=== PATIENT | female | born 1965 | race Caucasian/White ===

== ENCOUNTER 2017-12-20 01:01 | Day surgery (SDC) | payer BC ==
[~2017-12-20 01:01] MED LIST: ALBU90OI6 INH; AMOX500 PO; Amoxicillin500 MG PO; CALCIUM CITRAT PO; CHROMIUM PICOLINATE PO; CITRICAL PO; CLEOCIN; CLINDAMYCI600 MG/50 IV; CODLIVC PO; COPPER PO; CYCL10 PO; D-RIBOSE1 GM MC; DHEA; DICL75ER TOP; DIPATR PO; EPIN.3I IM; FLUC100 PO; FLUC200 PO; GABA800 PO; Gas-X80 MG PO; HEPARIN 50500 UNIT/5 IV; HYDACE5 PO; HYDACE5325; HYDROCODONE; HYDROCORTISONE TP; HYOS.125 SL; IBUP800 PO; LIDO5TP TOP; MAG GLYCINATE100 MG PO; MAGAMI; METHYL B12 PO; METO50ER PO; MINO100 PO; MTHF PO; MULTI MINERAL PO; N-ACETYL-L-CYS600 MG PO; NAPR500 PO; NAPR500ERA; NORT50 PO; NORT75 PO; OMEP20ER PO; ONDA4 PO; PARO20 PO; PRED20 PO; PROB500 PO; PROG100; PROM25 PO; Pregnenolone Po25 GM PO; Questran4 GM PO; R LIPOIC ACID PO; RIFA300 PO; SACC250C PO; SUMA25 PO; TIZANIDINE HCL4 MG PO; VANCOMYCIN1.5 GM/250 IV; Vitamin C100 M1 PO; Vitamin D2000 UNIT PO; [UNRECOGNIZED DRUG - CODE] IM; [UNRECOGNIZED DRUG - CODE] PO; [UNRECOGNIZED DRUG - OTHER]; [UNRECOGNIZED DRUG - OTHER] PO; [UNRECOGNIZED DRUG - OTHER] PO; [UNRECOGNIZED DRUG - OTHER] PO; [UNRECOGNIZED DRUG - OTHER] PO; [UNRECOGNIZED DRUG - OTHER] PO; [UNRECOGNIZED DRUG - OTHER] PO; [UNRECOGNIZED DRUG - OTHER] PO; [UNRECOGNIZED DRUG - OTHER] PO; [UNRECOGNIZED DRUG - OTHER] PO; [UNRECOGNIZED DRUG - OTHER] PO; [UNRECOGNIZED DRUG - OTHER] TOP
[2017-12-20] MEDS ORDERED: Naltrexone HCl50 MG (13:44)
== END 2017-12-20 14:22 | disposition home or self-care (01) ==
LOC: ATC 01:01
DX: Z45.2 Encounter for adjustment and management of vascular access device (principal); A69.20 Lyme disease, unspecified; Z79.899 Other long term (current) drug therapy; E78.5 Hyperlipidemia, unspecified
CPT/HCPCS: 36593; 96523; J1642

== ENCOUNTER 2018-01-22 00:27 | Day surgery (SDC) | payer BC ==
[~2018-01-22 00:27] MED LIST changes: +Naltrexone HCl50 MG
== END 2018-01-22 14:50 | disposition home or self-care (01) ==
LOC: ATC 00:27
DX: Z45.2 Encounter for adjustment and management of vascular access device (principal); A69.20 Lyme disease, unspecified
CPT/HCPCS: 96523; J1642

== ENCOUNTER 2018-02-20 08:28 | Day surgery (SDC) | payer BC ==
[~2018-02-20] VITALS: Ht 167.6 cm; Wt 81.8 kg
[2018-02-20] MEDS ORDERED: AMOX250 PO (09:08)
[2018-02-20] MEDS ORDERED: RIFA300 PO (09:09)
== END 2018-02-20 13:15 | disposition home or self-care (01) ==
LOC: ORSCSDS 08:28
PROVIDERS: Student in an Organized Health Care Education/Training Program
PROC: 0QSP04Z Reposition Left Metatarsal with Internal Fixation Device, Open Approach (ICD-10-PCS; principal; 2018-02-20 09:30)
PROC: 0QSR04Z Reposition Left Toe Phalanx with Internal Fixation Device, Open Approach (ICD-10-PCS; principal; 2018-02-20 09:30)
DX: M20.12 Hallux valgus (acquired), left foot (principal); M79.672 Pain in left foot; I10 Essential (primary) hypertension; J45.909 Unspecified asthma, uncomplicated; A69.20 Lyme disease, unspecified; Z79.899 Other long term (current) drug therapy
CPT/HCPCS: C1713; J2250; J3010

== ENCOUNTER 2018-02-21 13:11 | Emergency (ER) | payer BC ==
[~2018-02-21] VITALS: Ht 167.6 cm; Wt 79.8 kg
[~2018-02-21 13:11] MED LIST changes: +AMOX250 PO
[2018-02-21 13:54] LABS: Hematocrit 43.1 % (33.0-51.0); Hemoglobin 14.3 g/dL (11.5-16.0); Mean Corpuscular HGB 30.6 pg (26.0-34.0); Mean Corpuscular HGB Conc 33.2 g/dL (31.5-36.5); Mean Corpuscular Volume 92 fL (80-100); Mean Platelet Volume 10.1 fL (9.1-12.4); Platelet Count 169 K/mm3 (150-400); RDW Coefficient Variation 13.3 % (11.7-14.2); RDW Standard Deviation 45.1 fL (35.1-46.3); Red Blood Cell Count 4.67 M/mm3 (3.80-5.20); White Blood Cell Count 5.97 K/mm3 (4.00-11.30)
[2018-02-21 14:17] LABS: Alanine Aminotransfer (ALT/SGP 31 U/L (12-78); Albumin, Blood 3.4 g/dL (3.4-5.0); Albumin/Globulin Ratio 0.9 (0.8-1.8); Alk Phos 47 U/L (50-136); Anion Gap 6 mmol/L (6-16); Aspartate Aminotrans (AST/SGOT 25 U/L (12-37); Bilirubin, Total 0.4 mg/dL (0.1-1.0); Blood Urea Nitrogen 14 mg/dL (8-24); Bun/Creatinine Ratio 19.9 (12.0-20.0); CO2, Blood 27 mmol/L (21-32); Calcium, Blood 8.4 mg/dL (8.5-10.1); Chloride, Blood 104 mmol/L (98-108); Globulin, Blood 3.9 g/dL (2.2-4.0); Glomerular Filtration Rate >60 (60-); Glucose, Blood 95 mg/dL (70-99); Potassium, Blood 3.9 mmol/L (3.5-5.5); Sodium, Blood 137 mmol/L (136-145); Total Protein, Blood 7.3 g/dL (6.4-8.2); Troponin I <0.015 ng/mL (0.000-0.040)
[2018-02-21 14:18] LABS: BAND PERCENT MAN 9 % (0-8); BASOPHILS PERCENT MAN 0 % (0-2); EOSINOPHILS PERCENT MAN 0 % (0-6); LYMPHOCYTES ABSOLUTE MAN 0.29 K/mm3 (0.84-5.20); LYMPHOCYTES PERCENT MAN 5 % (21-46); MONOCYTES ABSOLUTE MAN 0.17 K/mm3 (0.16-1.47); MONOCYTES PERCENT MAN 3 % (4-13); NEUTROPHILS ABSOLUTE MAN 5.49 K/mm3 (1.96-9.15); SEG NEUTROPHILS PERCENT MAN 83 % (41-73); TOTAL CELLS COUNTED 100
[2018-02-21 16:16] LABS: Source, Urine Clean Catch
[2018-02-21 16:30] LABS: Appearance, Urine Clear (Clear); Bilirubin, Urine Neg (Neg); Blood, Urine 1+ (Neg); Color, Urine Yellow (P-Yellow); Glucose Qualitative, Urine Neg (Neg); Ketones, Urine Neg (Neg); Leukocyte Esterase, Urine Neg (Neg); Nitrite, Urine Neg (Neg); Protein, Urine Neg (Neg); Specific Gravity, Urine 1.005 (1.003-1.022); Urobilinogen, Urine NORM (Normal)
[2018-02-21 16:50] LABS: Bacteria Not Seen /hpf; Red Blood Cells, Urine 0-2 /hpf (0-2); Squamous Epithelial Cells Few /hpf (Few); White Blood Cells, Urine 0-2 /hpf (0-5)
== END 2018-02-21 17:45 | disposition home or self-care (01) ==
LOC: ER 13:11
PROVIDERS: Emergency Medicine
DX: R55 Syncope and collapse (principal); Z98.890 Other specified postprocedural states; Z88.5 Allergy status to narcotic agent; Z91.013 Allergy to seafood; Z79.51 Long term (current) use of inhaled steroids; Z79.899 Other long term (current) drug therapy
CPT/HCPCS: 36415; 80053; 81001; 83880; 84484; 85025; 93005; 93010; 96374; 96375; 96376; 99284; J2405; J3010; J7120

== ENCOUNTER 2019-01-17 00:58 | Emergency (ER) | payer BC ==
[~2019-01-17] VITALS: Ht 167.6 cm; Wt 72.6 kg
== END 2019-01-17 02:05 | disposition home or self-care (01) ==
LOC: ER 00:58
DX: S01.81XA Laceration without foreign body of other part of head, initial encounter (principal); Z88.5 Allergy status to narcotic agent; Z91.013 Allergy to seafood; Z88.6 Allergy status to analgesic agent; Z88.8 Allergy status to other drugs, medicaments and biological substances; Z79.899 Other long term (current) drug therapy; W19.XXXA Unspecified fall, initial encounter

== ENCOUNTER 2019-03-17 08:52 | Day surgery (SDC) | payer OTHER, BC | END 2019-03-17 22:38 | disposition home or self-care (01) | LOC: RAD 08:52 → MRI 10:00 → RAD 22:38 | DX: S43.492A Other sprain of left shoulder joint, initial encounter (principal); M75.52 Bursitis of left shoulder | CPT/HCPCS: 20610; 73222; 77002; A9577; Q9967 ==

== ENCOUNTER 2019-05-01 15:24 | Emergency (ER) | payer BC ==
[~2019-05-01] VITALS: Ht 167.6 cm; Wt 73.0 kg
[2019-05-01] MEDS ORDERED: KETO10 PO (18:15)
== END 2019-05-01 18:47 | disposition home or self-care (01) ==
LOC: ER 15:24
DX: S83.207A Unspecified tear of unspecified meniscus, current injury, left knee, initial encounter (principal); X50.9XXA Other and unspecified overexertion or strenuous movements or postures, initial encounter; Z88.8 Allergy status to other drugs, medicaments and biological substances; Z88.5 Allergy status to narcotic agent; Z91.013 Allergy to seafood; Z79.899 Other long term (current) drug therapy
CPT/HCPCS: 29505; 73562-LT; 99283-25

== ENCOUNTER → 2019-11-05 | Outpatient (CLI) | payer BC ==
[~2019-11-05] MED LIST changes: +KETO10 PO
== END | disposition home or self-care (01) ==
LOC: LAB SHORT 09:59 → LAB 09:59
PROVIDERS: Hospitalist
DX: Z12.4 Encounter for screening for malignant neoplasm of cervix (principal)
CPT/HCPCS: G0145

== ENCOUNTER → 2019-12-10 | Outpatient (CLI) | payer BC | END | disposition home or self-care (01) | LOC: LAB SHORT 13:46 → PLD 13:46 | DX: D22.72 Melanocytic nevi of left lower limb, including hip (principal) | CPT/HCPCS: 88305 ==

== ENCOUNTER → 2020-11-08 | Outpatient (CLI) | payer BC ==
[~2020-11-08] MED LIST changes: +MINO50
[2020-11-08 15:05] LABS: BASOPHILS ABSOLUTE AUTO 0.06 K/mm3 (0.00-0.23); BASOPHILS PERCENT AUTO 1 % (0-2); EOSINOPHILS ABSOLUTE AUTO 0.19 K/mm3 (0.00-0.68); EOSINOPHILS PERCENT AUTO 3 % (0-6); Hematocrit 45.1 % (33.0-51.0); Hemoglobin 14.4 g/dL (11.5-16.0); IMMATURE GRAN ABSOLUTE AUTO 0.01 K/mm3 (0.00-0.10); IMMATURE GRAN PERCENT AUTO 0 % (0-1); LYMPHOCYTES ABSOLUTE AUTO 0.92 K/mm3 (0.84-5.20); LYMPHOCYTES PERCENT AUTO 16 % (21-46); MONOCYTES ABSOLUTE AUTO 0.41 K/mm3 (0.16-1.47); MONOCYTES PERCENT AUTO 7 % (4-13); Mean Corpuscular HGB 30.4 pg (26.0-34.0); Mean Corpuscular HGB Conc 31.9 g/dL (31.5-36.5); Mean Corpuscular Volume 95 fL (80-100); Mean Platelet Volume 10.9 fL (9.1-12.4); NEUTROPHILS ABSOLUTE AUTO 4.35 K/mm3 (1.96-9.15); NEUTROPHILS PERCENT AUTO 73 % (41-73); Platelet Count 199 K/mm3 (150-400); RDW Coefficient Variation 14.2 % (11.7-14.2); RDW Standard Deviation 49.6 fL (35.1-46.3); Red Blood Cell Count 4.73 M/mm3 (3.80-5.20); White Blood Cell Count 5.94 K/mm3 (4.00-11.30)
[2020-11-08 15:46] LABS: Alanine Aminotransfer (ALT/SGP 26 U/L (12-78); Albumin/Globulin Ratio 1.2 (0.8-1.8); Alk Phos 56 U/L (50-136); Anion Gap 5 mmol/L (6-16); Aspartate Aminotrans (AST/SGOT 18 U/L (12-37); Bilirubin, Total 0.3 mg/dL (0.1-1.0); Blood Urea Nitrogen 21 mg/dL (8-24); Bun/Creatinine Ratio 27.6 (12.0-20.0); CHOL/HDL RATIO 2.3; CO2, Blood 25 mmol/L (21-32); Calcium, Blood 9.2 mg/dL (8.5-10.1); Chloride, Blood 110 mmol/L (98-108); Cholesterol 186 mg/dL (50-200); Creatinine, Blood 0.76 mg/dL (0.40-1.00); Globulin, Blood 3.4 g/dL (2.2-4.0); Glomerular Filtration Rate >60 (60-); Glucose, Blood 80 mg/dL (70-99); HDL Cholesterol 80 mg/dL (>39); LDL/HDL RATIO 1.2; Low Density Lipoprotein Chol 95 mg/dL (0-110); Potassium, Blood 3.7 mmol/L (3.5-5.5); Sodium, Blood 140 mmol/L (136-145); Total Protein, Blood 7.4 g/dL (6.4-8.2); Triglycerides 56 mg/dL (30-160); Very Low Density Lipoprot Chol 11 mg/dL (6-32)
== END | disposition home or self-care (01) ==
LOC: LAB SHORT 09:24 → LAB 09:24
PROVIDERS: Hospitalist
DX: Z00.00 Encounter for general adult medical examination without abnormal findings (principal)
CPT/HCPCS: 80053; 80061; 85025

== ENCOUNTER → 2021-11-13 | Outpatient (CLI) | payer BC ==
[2021-11-13 15:16] LABS: BASOPHILS ABSOLUTE AUTO 0.03 K/mm3 (0.00-0.23); BASOPHILS PERCENT AUTO 1 % (0-2); EOSINOPHILS PERCENT AUTO 5 % (0-6); Hemoglobin 14.3 g/dL (11.5-16.0); IMMATURE GRAN ABSOLUTE AUTO 0.01 K/mm3 (0.00-0.10); IMMATURE GRAN PERCENT AUTO 0 % (0-1); LYMPHOCYTES ABSOLUTE AUTO 0.68 K/mm3 (0.84-5.20); LYMPHOCYTES PERCENT AUTO 17 % (21-46); MONOCYTES ABSOLUTE AUTO 0.44 K/mm3 (0.16-1.47); MONOCYTES PERCENT AUTO 11 % (4-13); Mean Corpuscular HGB 30.3 pg (26.0-34.0); Mean Corpuscular HGB Conc 32.5 g/dL (31.5-36.5); Mean Corpuscular Volume 93 fL (80-100); Mean Platelet Volume 10.8 fL (9.1-12.4); NEUTROPHILS ABSOLUTE AUTO 2.66 K/mm3 (1.96-9.15); NEUTROPHILS PERCENT AUTO 66 % (41-73); Platelet Count 190 K/mm3 (150-400); RDW Coefficient Variation 13.2 % (11.7-14.2); RDW Standard Deviation 45.5 fL (35.1-46.3); Red Blood Cell Count 4.72 M/mm3 (3.80-5.20); White Blood Cell Count 4.02 K/mm3 (4.00-11.30)
[2021-11-13 15:29] LABS: Alanine Aminotransfer (ALT/SGP 46 U/L (12-78); Albumin, Blood 3.7 g/dL (3.4-5.0); Alk Phos 55 U/L (50-136); Anion Gap 4 mmol/L (6-16); Aspartate Aminotrans (AST/SGOT 27 U/L (12-37); Bilirubin, Total 0.5 mg/dL (0.1-1.0); Blood Urea Nitrogen 17 mg/dL (8-24); Bun/Creatinine Ratio 24.4 (12.0-20.0); CO2, Blood 31 mmol/L (21-32); Calcium, Blood 9.1 mg/dL (8.5-10.1); Chloride, Blood 106 mmol/L (98-108); Cholesterol 164 mg/dL (50-200); Globulin, Blood 3.7 g/dL (2.2-4.0); Glomerular Filtration Rate >60 (60-); Glucose, Blood 78 mg/dL (70-99); HDL Cholesterol 80 mg/dL (>39); LDL/HDL RATIO 0.9; Low Density Lipoprotein Chol 70 mg/dL (0-110); Potassium, Blood 3.8 mmol/L (3.5-5.5); Sodium, Blood 141 mmol/L (136-145); Total Protein, Blood 7.4 g/dL (6.4-8.2); Triglycerides 68 mg/dL (30-160); Very Low Density Lipoprot Chol 13 mg/dL (6-32)
== END | disposition home or self-care (01) ==
LOC: LAB SHORT 13:27 → LAB 13:27
PROVIDERS: Hospitalist
DX: Z01.419 Encounter for gynecological examination (general) (routine) without abnormal findings (principal)
CPT/HCPCS: 80053; 80061; 85025

== ENCOUNTER 2022-02-28 09:14 | Day surgery (SDC) | payer BC ==
[~2022-02-28] VITALS: Ht 165.1 cm; Wt 77.1 kg
[~2022-02-28 09:14] MED LIST changes: +CALCIUM CIT 311 EAC7 PO; +CLIMARA1 EACH TOP; +CLIN1TS; +Diclofenac Sodi50 MG; +FISH OIL 1,2001 EAC4 PO; +Naltrexone HCl50 MG PO; +Natrol Alpha 3300 MG PO; +PROG100 PO; +TOPI100 PO; +Vitamin B Comple1 EA PO; +[UNRECOGNIZED DRUG - OTHER]; +[UNRECOGNIZED DRUG - OTHER]
== END 2022-02-28 11:54 | disposition home or self-care (01) ==
LOC: ORSCSDS 09:14
PROVIDERS: Orthopaedic Surgery
PROC: 0JBP0ZZ Excision of Left Lower Leg Subcutaneous Tissue and Fascia, Open Approach (ICD-10-PCS; principal; 2022-02-28 10:30)
DX: D17.24 Benign lipomatous neoplasm of skin and subcutaneous tissue of left leg (principal); I10 Essential (primary) hypertension; I49.9 Cardiac arrhythmia, unspecified; F41.9 Anxiety disorder, unspecified; Z79.899 Other long term (current) drug therapy
CPT/HCPCS: 88304; J0690; J1100; J1885; J2250; J2405; J2704; J3010; J7120

== ENCOUNTER → 2022-11-13 | Outpatient (CLI) | payer BC ==
[2022-11-13 15:30] LABS: Alanine Aminotransfer (ALT/SGP 70 U/L (12-78); Albumin, Blood 3.7 g/dL (3.4-5.0); Albumin/Globulin Ratio 1.3 (0.8-1.8); Alk Phos 50 U/L (50-136); Anion Gap 7 mmol/L (6-16); Aspartate Aminotrans (AST/SGOT 38 U/L (12-37); Bilirubin, Total 0.6 mg/dL (0.1-1.0); Blood Urea Nitrogen 21 mg/dL (8-24); Bun/Creatinine Ratio 31.2 (12.0-20.0); CHOL/HDL RATIO 2.4; CO2, Blood 28 mmol/L (21-32); Calcium, Blood 8.6 mg/dL (8.5-10.1); Chloride, Blood 105 mmol/L (98-108); Cholesterol 187 mg/dL (50-200); Creatinine, Blood 0.67 mg/dL (0.40-1.00); Globulin, Blood 2.8 g/dL (2.2-4.0); Glomerular Filtration Rate 103 (60-); Glucose, Blood 85 mg/dL (70-99); HDL Cholesterol 79 mg/dL (>39); LDL/HDL RATIO 1.1; Low Density Lipoprotein Chol 89 mg/dL (0-110); Potassium, Blood 3.7 mmol/L (3.5-5.5); Sodium, Blood 140 mmol/L (136-145); Total Protein, Blood 6.5 g/dL (6.4-8.2); Triglycerides 95 mg/dL (30-160); Very Low Density Lipoprot Chol 19 mg/dL (6-32)
[2022-11-13 15:48] LABS: BASOPHILS ABSOLUTE AUTO 0.04 K/mm3 (0.00-0.23); BASOPHILS PERCENT AUTO 1 % (0-2); EOSINOPHILS ABSOLUTE AUTO 0.19 K/mm3 (0.00-0.68); EOSINOPHILS PERCENT AUTO 4 % (0-6); Hematocrit 42.1 % (33.0-51.0); Hemoglobin 13.9 g/dL (11.5-16.0); IMMATURE GRAN ABSOLUTE AUTO 0.01 K/mm3 (0.00-0.10); IMMATURE GRAN PERCENT AUTO 0 % (0-1); LYMPHOCYTES ABSOLUTE AUTO 0.68 K/mm3 (0.84-5.20); LYMPHOCYTES PERCENT AUTO 14 % (21-46); MONOCYTES ABSOLUTE AUTO 0.48 K/mm3 (0.16-1.47); MONOCYTES PERCENT AUTO 10 % (4-13); Mean Corpuscular HGB 31.5 pg (26.0-34.0); Mean Corpuscular Volume 96 fL (80-100); Mean Platelet Volume 11.2 fL (9.1-12.4); NEUTROPHILS ABSOLUTE AUTO 3.63 K/mm3 (1.96-9.15); NEUTROPHILS PERCENT AUTO 72 % (41-73); Platelet Count 185 K/mm3 (150-400); RDW Coefficient Variation 14.1 % (11.7-14.2); RDW Standard Deviation 49.4 fL (35.1-46.3); Red Blood Cell Count 4.41 M/mm3 (3.80-5.20); White Blood Cell Count 5.03 K/mm3 (4.00-11.30)
[2022-11-15 00:07] LABS: CHLAMYDIA TRACHOMATIS, NAA Negative (Negative)
== END ==
LOC: LAB 09:35 → LAB SHORT 09:35
PROVIDERS: Hospitalist
DX: Z00.00 Encounter for general adult medical examination without abnormal findings (principal); Z11.3 Encounter for screening for infections with a predominantly sexual mode of transmission
CPT/HCPCS: 80053; 80061; 85025; 87491; 87591

== ENCOUNTER → 2023-11-14 | Outpatient (CLI) | payer BC ==
[2023-11-14 15:38] LABS: BASOPHILS ABSOLUTE AUTO 0.05 K/mm3 (0.00-0.23); BASOPHILS PERCENT AUTO 1 % (0-2); EOSINOPHILS ABSOLUTE AUTO 0.19 K/mm3 (0.00-0.68); EOSINOPHILS PERCENT AUTO 5 % (0-6); Hematocrit 45.2 % (33.0-51.0); Hemoglobin 14.8 g/dL (11.5-16.0); IMMATURE GRAN ABSOLUTE AUTO 0.01 K/mm3 (0.00-0.10); IMMATURE GRAN PERCENT AUTO 0 % (0-1); LYMPHOCYTES PERCENT AUTO 15 % (21-46); MONOCYTES ABSOLUTE AUTO 0.38 K/mm3 (0.16-1.47); MONOCYTES PERCENT AUTO 10 % (4-13); Mean Corpuscular HGB 31.2 pg (26.0-34.0); Mean Corpuscular HGB Conc 32.7 g/dL (31.5-36.5); Mean Corpuscular Volume 95 fL (80-100); Mean Platelet Volume 11.1 fL (9.1-12.4); NEUTROPHILS ABSOLUTE AUTO 2.69 K/mm3 (1.96-9.15); NEUTROPHILS PERCENT AUTO 69 % (41-73); Platelet Count 191 K/mm3 (150-400); RDW Coefficient Variation 13.2 % (11.7-14.2); Red Blood Cell Count 4.74 M/mm3 (3.80-5.20); White Blood Cell Count 3.92 K/mm3 (4.00-11.30)
[2023-11-14 18:47] LABS: Alanine Aminotransfer (ALT/SGP 46 U/L (12-78); Albumin, Blood 3.8 g/dL (3.4-5.0); Albumin/Globulin Ratio 1.3 (0.8-1.8); Alk Phos 52 U/L (50-136); Anion Gap 5 mmol/L (6-16); Aspartate Aminotrans (AST/SGOT 25 U/L (12-37); Bilirubin, Total 0.5 mg/dL (0.1-1.0); Blood Urea Nitrogen 20 mg/dL (8-24); Bun/Creatinine Ratio 27.9 (12.0-20.0); CHOL/HDL RATIO 1.6; CO2, Blood 27 mmol/L (21-32); Calcium, Blood 9.3 mg/dL (8.5-10.1); Chloride, Blood 109 mmol/L (98-108); Cholesterol 166 mg/dL (50-200); Creatinine, Blood 0.72 mg/dL (0.40-1.00); Glomerular Filtration Rate 98 (60-); Glucose, Blood 84 mg/dL (70-99); HDL Cholesterol 106 mg/dL (>39); LDL/HDL RATIO 0.5; Low Density Lipoprotein Chol 54 mg/dL (0-110); Potassium, Blood 3.6 mmol/L (3.5-5.5); Sodium, Blood 141 mmol/L (136-145); Total Protein, Blood 6.8 g/dL (6.4-8.2); Triglycerides 30 mg/dL (30-160); Very Low Density Lipoprot Chol 6 mg/dL (6-32)
[2023-11-17 19:39] LABS: APTIMA MEDIA TYPE Urine; C. TRACHOMATIS BY TMA Negative (Negative); N. GONORRHOEAE BY TMA Negative (Negative); SPECIMEN SOURCE Urine
== END ==
LOC: LAB SHORT 12:24 → LAB 12:24
PROVIDERS: Hospitalist
DX: Z12.4 Encounter for screening for malignant neoplasm of cervix (principal); Z11.3 Encounter for screening for infections with a predominantly sexual mode of transmission
CPT/HCPCS: 80053; 80061; 85025; 87491; 87591

== ENCOUNTER → 2024-11-16 | Outpatient (CLI) | payer BC ==
[~2024-11-16] MED LIST changes: +MELO7.5 PO; +ZANAFLEX413 PO
[2024-11-16 14:19] LABS: BASOPHILS ABSOLUTE AUTO 0.04 K/mm3 (0.00-0.23); BASOPHILS PERCENT AUTO 1 % (0-2); EOSINOPHILS ABSOLUTE AUTO 0.15 K/mm3 (0.00-0.68); EOSINOPHILS PERCENT AUTO 3 % (0-6); Hemoglobin 14.1 g/dL (11.5-16.0); IMMATURE GRAN ABSOLUTE AUTO 0.01 K/mm3 (0.00-0.10); IMMATURE GRAN PERCENT AUTO 0 % (0-1); LYMPHOCYTES PERCENT AUTO 18 % (21-46); MONOCYTES ABSOLUTE AUTO 0.41 K/mm3 (0.16-1.47); MONOCYTES PERCENT AUTO 9 % (4-13); Mean Corpuscular HGB 30.6 pg (26.0-34.0); Mean Corpuscular HGB Conc 32.8 g/dL (31.5-36.5); Mean Corpuscular Volume 93 fL (80-100); Mean Platelet Volume 11.2 fL (9.1-12.4); NEUTROPHILS ABSOLUTE AUTO 2.99 K/mm3 (1.96-9.15); NEUTROPHILS PERCENT AUTO 68 % (41-73); Platelet Count 196 K/mm3 (150-400); RDW Coefficient Variation 13.8 % (11.7-14.2); RDW Standard Deviation 47.1 fL (35.1-46.3); Red Blood Cell Count 4.61 M/mm3 (3.80-5.20)
[2024-11-16 18:00] LABS: Alanine Aminotransfer (ALT/SGP 37 U/L (12-78); Albumin, Blood 3.6 g/dL (3.4-5.0); Albumin/Globulin Ratio 1.2 (0.8-1.8); Alk Phos 52 U/L (50-136); Anion Gap 9 mmol/L (3-11); Aspartate Aminotrans (AST/SGOT 24 U/L (12-37); Bilirubin, Total 0.5 mg/dL (0.1-1.0); Blood Urea Nitrogen 17 mg/dL (8-24); CHOL/HDL RATIO 1.7; CO2, Blood 27 mmol/L (21-32); Calcium, Blood 9.3 mg/dL (8.5-10.1); Chloride, Blood 107 mmol/L (98-108); Cholesterol 148 mg/dL (50-200); Creatinine, Blood 0.71 mg/dL (0.40-1.00); Globulin, Blood 3.1 g/dL (2.2-4.0); Glomerular Filtration Rate 99 (60-); Glucose, Blood 86 mg/dL (70-99); HDL Cholesterol 87 mg/dL (>39); LDL/HDL RATIO 0.6; Low Density Lipoprotein Chol 51 mg/dL (0-110); Potassium, Blood 3.9 mmol/L (3.5-5.5); Sodium, Blood 139 mmol/L (136-145); Total Protein, Blood 6.7 g/dL (6.4-8.2); Triglycerides 48 mg/dL (30-160); Very Low Density Lipoprot Chol 9 mg/dL (6-32)
== END | disposition home or self-care (01) ==
LOC: LAB SHORT 13:45 → LAB 13:45
PROVIDERS: Hospitalist
DX: Z00.00 Encounter for general adult medical examination without abnormal findings (principal); Z13.220 Encounter for screening for lipoid disorders; A69.20 Lyme disease, unspecified; R63.5 Abnormal weight gain
CPT/HCPCS: 80053; 80061; 82533; 84443; 85025

== ENCOUNTER → 2025-11-09 | Outpatient (CLI) | payer BC ==
[~2025-11-09] MED LIST changes: +LOTREXONE4.5 MG; +SIRO1; +[UNRECOGNIZED DRUG - OTHER]
[2025-11-09 18:18] LABS: BASOPHILS ABSOLUTE AUTO 0.04 K/mm3 (0.00-0.23); BASOPHILS PERCENT AUTO 1 % (0-2); EOSINOPHILS ABSOLUTE AUTO 0.11 K/mm3 (0.00-0.68); EOSINOPHILS PERCENT AUTO 2 % (0-6); Hematocrit 42.9 % (33.0-51.0); Hemoglobin 14.3 g/dL (11.5-16.0); IMMATURE GRAN ABSOLUTE AUTO 0.02 K/mm3 (0.00-0.10); IMMATURE GRAN PERCENT AUTO 0 % (0-1); LYMPHOCYTES ABSOLUTE AUTO 0.79 K/mm3 (0.84-5.20); LYMPHOCYTES PERCENT AUTO 12 % (21-46); MONOCYTES ABSOLUTE AUTO 0.50 K/mm3 (0.16-1.47); MONOCYTES PERCENT AUTO 7 % (4-13); Mean Corpuscular HGB Conc 33.3 g/dL (31.5-36.5); Mean Corpuscular Volume 88 fL (80-100); NEUTROPHILS ABSOLUTE AUTO 5.30 K/mm3 (1.96-9.15); NEUTROPHILS PERCENT AUTO 78 % (41-73); NRBC ABSOLUTE 0.00 K/mm3 (0.00-0.02); NRBC Auto 0.0 /100 WBC (0.0-0.2); Platelet Count 317 K/mm3 (150-400); RDW Coefficient Variation 13.7 % (11.7-14.2); RDW Standard Deviation 43.8 fL (35.1-46.3)
== END ==
LOC: LAB SHORT 17:29 → LAB 17:29
PROVIDERS: Hospitalist
DX: R55 Syncope and collapse (principal)
CPT/HCPCS: 85025